=== PATIENT | male | born 2005 | race Caucasian/White ===

== ENCOUNTER 2023-03-16 08:13 | Emergency (ER) | payer BC, SELFPAY ==
[2023-03-16 08:29] VITALS: BP 125/71; PULSE 57; RESP 16; TEMP 35.9; O2SAT 99
--- NOTE | 2023-03-16 08:38 | ED.EXTPRO ---
HPI - Extremity Problem General Chief complaint: Extremity Problem,Nontraumatic Stated complaint: right knee pain Time Seen by Provider: 03/16/23 08:38 Source: patient Mode of arrival: ambulatory Limitations: no limitations History of Present Illness HPI Narrative: [age] presenting right knee pain after injury yesterday. He states while he was rock climbing he twisted the knee. Since then the pain is worse when he walks on it, rates pain 8/10 with walking and states pain radiates down the back of leg. States he attempted to go to work today, but when he tried to go up a step he was 'almost in tears.' No pain at rest. Denies numbness, tingling, weakness of the extremity, denies decreased ROM. Took ibuprofen for pain. Related Data Allergies Allergy/AdvReac Type Severity Reaction Status Date / Time No Known Allergies Allergy Verified 03/16/23 08:26 Review of Systems Review of Systems: CONSTITUTIONAL: Denies body aches, fever, chills EYES: Denies visual changes ENT: Denies rhinorrhea, congestion CARDIOVASCULAR: Denies chest pain, palpitations, or edema. RESPIRATORY: Denies cough or dyspnea. GASTROINTESTINAL: Denies abdominal pain, nausea, vomiting, or diarrhea. SKIN: Denies rash, itching, or wounds. MUSCULOSKELETAL: Reports right knee pain denies back pain, or myalgia. NEUROLOGIC: Denies headache, numbness, tingling, or weakness. PSYCH: Denies depression or anxiety. All systems reviewed & are unremarkable except as noted in HPI and below PMFSH Past Medical History Medical History (Updated 03/16/23 @ 08:52 by Tarah Blake, STIVEN) No pertinent past medical history Comments At time of signature, I have reviewed and agree with nursing past medical, surgical, social and family history unless otherwise noted. Please see nursing chart for further information. There is no relevant family history pertinent to the presenting complaint Exam Narrative: GENERAL: Well-appearing, well-nourished, and in no acute distress. HEAD: Normocephalic, atraumatic. EYES: conjunctivae clear CHEST: Speaks in full sentences. No respiratory distress. HEART: Regular rate and rhythm. Normal and equal peripheral pulses. EXTREMITIES: RLE has normal strength and sensation, normal range of motion with flexion/extension/rotation, without pain with movement. Patient is able to bear weight and ambulate with reported pain to the right knee. No bruising, erythema or warmth. The right knee is without obvious asymmetry or deformity when compared to the other knee. Patient is able to tolerate full flexion, extension, internal and external rotation. No tenderness to palpation of the patella, no effusion or ballottement. No tenderness over the infrapatellar tendon. No tenderness over the proximal fibular head. No quadriceps tenderness. Distal motor and neurovascular status intact. No pain illicited with varus/valgus. No open wounds, or obvious deformity; alignment normal, pulse palpable and equal bilaterally, skin warm, dry, pink. Capillary refill less than 3 seconds. SKIN: Warm, dry, no rash. NEURO: Alert and oriented x3. PSYCH: Normal mood and affect Course Course Emergency Course: Patient is aware of diagnosis, understands and agrees to treatment plan. Anticipatory guidance given. Patient agrees to follow-up as directed and is aware of reasons to seek care at the emergency department. Portions of this record may have been created with voice recognition software Level of Care: Express Care Visit Vital Signs Vital signs: Vital Signs Temperature 96.7 F L 03/16/23 08:29 Pulse Rate 57 L 03/16/23 08:29 Respiratory Rate 16 03/16/23 08:29 Blood Pressure 125/71 03/16/23 08:29 Pulse Oximetry 99 03/16/23 08:29 Oxygen Delivery Room Air 03/16/23 08:29 Temperature 96.7 F L 03/16/23 08:29 Pulse Rate 57 L 03/16/23 08:29 Respiratory Rate 16 03/16/23 08:29 Blood Pressure 125/71 03/16/23 08:29 Pulse Oximetry 99
== END 2023-03-16 08:57 | disposition home or self-care (01) ==
PROVIDERS: Emergency Provider Nurse Practitioner Family; PCP Internal Medicine
DX: M25.561 Pain in right knee (principal)
CPT/HCPCS: 99203; G0463